=== PATIENT | female | born 1980 | race African-American/Black ===

== ENCOUNTER 2021-04-12 14:32 | Emergency (ER) | payer OTHER ==
[~2021-04-12] VITALS: Ht 160 cm; Wt 85.3 kg
[2021-04-12] MEDS ORDERED: NORCO 10-325 T1 EACH PO (14:49)
[2021-04-12 15:12] LABS: ABSOLUTE NEUTROPHILS 4.4 thou/uL (1.4-8.2); BASOPHILS 0.6 % (0.0-2.0); EOSINOPHILS 0.9 % (0.0-3.0); HEMATOCRIT 37.1 % (37.0-47.0); HEMOGLOBIN 12.4 gm/dL (12.0-15.0); LYMPHOCYTES 29.8 % (24.0-44.0); MCH 32.6 pg (26.0-34.0); MCHC 33.3 g/dL (28.0-37.0); MCV 97.8 fL (80.0-100.0); MONOCYTES 11.5 % (1.0-8.0); PLATELET COUNT 291 thou/uL (150-400); POLYS 57.2 % (36.0-66.0); RBC 3.79 mil/uL (4.20-5.00); RDW 12.9 % (10.5-14.5); WBC 7.7 thou/uL (4.0-11.0)
[2021-04-12 15:19] LABS: ANION GAP 8 mmol/L (7-16); BUN 11 mg/dL (7-18); CALCIUM 9.5 mg/dL (8.5-10.1); CHLORIDE 106 mmol/L (98-107); CO2 27 mmol/L (21-32); CREATININE 0.9 mg/dL (0.6-1.0); GLUCOSE 94 mg/dL (74-106); POTASSIUM 3.8 mmol/L (3.5-5.1); SODIUM 141 mmol/L (136-145)
[2021-04-12 15:30] LABS: ALBUMIN 3.7 g/dL (3.4-5.0); AMYLASE 62 U/L (25-115); DIRECT BILIRUBIN < 0.1 mg/dL (<0.1-0.2); LIPASE 63 U/L (73-393); MAGNESIUM 1.9 mg/dL (1.8-2.4); PHOSPHORUS 3.9 mg/dL (2.6-4.7); SGOT 15 U/L (15-37); SGPT 20 U/L (14-59); TOTAL BILIRUBIN 0.2 mg/dL (0.2-1.0); TOTAL PROTEIN 7.6 g/dL (6.4-8.2); TROPONIN-I <0.06 ng/mL (<0.06)
[2021-04-12 15:48] LABS: URINE BILIRUBIN NEGATIVE (Negative); URINE BLOOD NEGATIVE (Negative); URINE CLARITY SL CLOUDY; URINE COLOR YELLOW; URINE GLUCOSE-RANDOM* NEGATIVE (Negative); URINE KETONES NEGATIVE (Negative); URINE LEUKOCYTES-REFLEX NEGATIVE (Negative); URINE NITRITE-REFLEX NEGATIVE (Negative); URINE PROTEIN (DIPSTICK) NEGATIVE (Negative); URINE SPECIFIC GRAVITY >= 1.030 (1.005-1.035)
--- NOTE | 2021-04-12 16:02 | EKG ---
[address] [employer] [address] ELECTROCARDIOGRAM REPORT Name: GRETCHEN CLIFTON Room #: [facility]#: [id number] Admission: 04/12/21 Attend Phys: Discharge: Date of : 76 Report #: [id number] [facility] ED Test Date: 2021-04-12 Test Time: 14:36:57 Pat Name: GRETCHEN CLIFTON Department: Room: Gender: F Python Web Developer: : 1980 Requested By: Dom Jackson Order Number: [id number] MD: Edouard Esparza Measurements Intervals [place] Rate: 85 P: 82 VT: 163 QRS: 47 QRSD: 84 T: 22 QT: 342 QTc: 407 Interpretive Statements Sinus rhythm No previous ECG available for comparison Electronically Signed On 04-12-2021 16:01:58 CDT by Edouard Esparza [email or web address] <ELECTRONICALLY SIGNED> By: Edouard Esparza MD, [facility] 04/12/21 1601 1436 1436 Edouard Esparza MD, FACC /EPI
[2021-04-12] MEDS ORDERED: NAPROSYN500 MG PO (16:12)
[2021-04-12] MEDS ORDERED: TYLENOL325 M1 PO (16:12)
[2021-04-12 17:01] VITALS: BP 120/74
--- NOTE | 2021-04-13 06:48 | EKG ---
[place] [address] [facility] [employer] [place] [address] ELECTROCARDIOGRAM REPORT Name: GRETCHEN CLIFTON Room #: [facility]#: [id number] Admission: 04/12/21 Attend Phys: Discharge: 04/12/21 Date of : 76 Report #: [id number] [facility] ED Test Date: 2021-04-12 Test Time: 16:45:12 Pat Name: GRETCHEN CLIFTON Department: Room: Gender: F Clinical Rn Manager: mpark : 1980 Requested By: Dom Jackson Order Number: [id number] MD: Edouard Esparza Measurements Intervals [place] Rate: 64 P: 81 VT: 167 QRS: 34 QRSD: 84 T: 14 QT: 374 QTc: 386 Interpretive Statements Sinus rhythm Compared to ECG 04/12/2021 14:36:57 No significant changes Electronically Signed On 04-13-2021 6:48:09 CDT by Edouard Esparza [email or web address] <ELECTRONICALLY SIGNED> By: Eduoard Esparza MD, [facility] 04/13/21 0648 1645 1645 Edouard Esparza MD, FACC /EPI
== END 2021-04-12 17:03 | disposition home or self-care (01) ==
LOC: ER 14:32
PROVIDERS: Emergency Medicine
DX: R07.89 Other chest pain (principal); Z20.822 Contact with and (suspected) exposure to COVID-19; F17.210 Nicotine dependence, cigarettes, uncomplicated; Z88.6 Allergy status to analgesic agent; Z98.890 Other specified postprocedural states; Z90.710 Acquired absence of both cervix and uterus

== ENCOUNTER → 2021-04-27 | Outpatient (CLI) | payer OTHER ==
[~2021-04-27] MED LIST: NAPROSYN500 MG PO; NORCO 10-325 T1 EACH PO; TYLENOL325 M1 PO
== END ==
LOC: SJCVCIMAG 08:28
PROVIDERS: ATTEND Internal Medicine Cardiovascular Disease
DX: I49.3 Ventricular premature depolarization (principal); R07.89 Other chest pain; R06.00 Dyspnea, unspecified; R53.83 Other fatigue